=== PATIENT | female | born 1955 | race Caucasian/White ===

== ENCOUNTER → 2022-12-07 | Outpatient (CLI) | payer OTHER, MEDICARE, SELFPAY ==
--- NOTE | 2022-12-08 10:06 | BRONCHALL ---
Bronchoprovocation Challenge Bronchoprovocation Challenge Bronchoprovocation Challenge: INTRODUCTION: The patient is a 67-year-old female that presents for a bronchoprovocation challenge secondary to a diagnosis of chronic cough. Respiratory therapy reported acceptable and reproducible results. INTERPRETATION: Initial spirometry did not show any large airways obstructive ventilatory defect with preserved airflows throughout. The patient was then given progressively increasing doses of methacholine in a standardized fashion. At no point during testing did the patient's FEV1 drop to the threshold criteria to be considered a positive test. IMPRESSION: Negative methacholine inhalation challenge.
== END | disposition home or self-care (01) ==
PROVIDERS: PCP Family Medicine
DX: R05.3 Chronic cough (principal)
CPT/HCPCS: 94070; 95070; J3490; J7674